=== PATIENT | male | born 1980 | race Caucasian/White ===

== ENCOUNTER 2019-07-18 11:09 | Emergency (ER) | payer OTHER, SELFPAY ==
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
[2019-07-18 13:00] VITALS: BP 140/97; TEMP 97.5; O2SAT 98
== END 2019-07-18 12:36 | disposition home or self-care (01) ==
LOC: ER 11:09
DX: S00.81XA Abrasion of other part of head, initial encounter (principal); M54.2 Cervicalgia; V49.40XA Driver injured in collision with unspecified motor vehicles in traffic accident, initial encounter; F90.9 Attention-deficit hyperactivity disorder, unspecified type
CPT/HCPCS: 70450; 72125; 99284